=== PATIENT | female | born 1990 | race Caucasian/White ===

== ENCOUNTER 2022-07-28 09:58 | Emergency (ER) | payer BC ==
[~2022-07-28] VITALS: Ht 170.2 cm; Wt 54.0 kg
[2022-07-28 10:00] VITALS: BP 165/84
== END 2022-07-28 10:48 | disposition left against medical advice (07) ==
LOC: ER 09:58
DX: F10.129 Alcohol abuse with intoxication, unspecified (principal); Y90.0 Blood alcohol level of less than 20 mg/100 ml
CPT/HCPCS: 99283